=== PATIENT | female | born 2000 | race Caucasian/White ===

== ENCOUNTER 2021-11-16 16:11 | Emergency (ER) | payer OTHER ==
[2021-11-16] MEDS ORDERED: Ondansetron PF 4 MG/2 ML Vial ONE (16:34)
[2021-11-16] MEDS ORDERED: Lactated Ringer's 1,000 ML ONE (16:34)
[2021-11-16 16:39] LABS: #Basophils 0.1 thou/uL (0.0-0.2); #Eosinphils 0.1 thou/uL (0.0-0.7); #Lymphocytes 1.6 thou/uL (1.20-3.40); #Monocytes 0.5 thou/uL (0.11-0.59); #Neutrophils 5.6 thou/uL (1.40-6.50); %Basophils 1.1 % (0.0-1.0); %Eosinophils 0.7 % (0.0-10.0); %Lymphocytes 20.6 % (21.0-51.0); %Monocytes 5.9 % (0.0-10.0); %Neutrophils 71.7 % (42.0-75.0); Hemoglobin 12.6 g/dL (12.0-16.0); Mean Corpuscular HGB CONC 34.1 g/dL (32.0-36.0); Mean Corpuscular Hemoglobin 32.3 pg (27.0-31.0); Mean Corpuscular Volume 94.7 fL (78.0-98.0); Platelet Count 269 thou/uL (130-400); RBC Distribution Width 10.9 % (11.5-14.5); Red Blood Cell (RBC) Count 3.89 mill/uL (4.20-5.40); White Blood Cell (WBC) Count 7.8 thou/uL (4.8-10.8)
[2021-11-16 16:52] LABS: ALT (SGPT) 35 U/L (8-55); AST (SGOT) 38 U/L (5-34); Albumin 4.3 g/dL (3.5-5.0); Alkaline Phosphatase 64 U/L (40-110); Anion Gap 17 mmol/L (10-20); BUN (Urea Nitrogen) 8 mg/dL (7.0-18.7); Bilirubin, Total 0.4 mg/dL (0.2-1.2); Calc. Creatinine Clearance 0 mL/min (70-130); Calcium 9.5 mg/dL (7.8-10.44); Carbon Dioxide 17 mmol/L (22-29); Chloride 106 mmol/L (98-107); Estimated GFR 127; Glucose 88 mg/dL (70-105); Potassium 3.8 mmol/L (3.5-5.1); Protein, Total 7.3 g/dL (6.0-8.3); Sodium 136 mmol/L (136-145)
[2021-11-16 16:54] LABS: Prothrombin Time 12.9 sec (12.0-14.7)
[2021-11-16 16:55] LABS: PTT 28.1 sec (22.9-36.1)
[2021-11-16 16:57] LABS: D-Dimer Test 0.28 *mcg/mL (0.27-0.43)
[2021-11-16] MEDS ORDERED: Acetaminophen 500 MG TAB ONE (17:35)
[2021-11-16] MEDS ORDERED: Mag-Al Plus 1200 MG/1200 MG/120 MG/30 ML UDCUP ONE (19:08)
[2021-11-16] MEDS ORDERED: Lidocaine Viscous Sol 2% 15 ml UD Cup ONE (19:08)
[2021-11-16 19:48] LABS: Troponin I Less than 0.010 ng/mL (< 0.028)
== END 2021-11-16 20:20 | disposition home or self-care (01) ==
LOC: MADERS 16:11
DX: O99.891 Other specified diseases and conditions complicating pregnancy (principal); R07.81 Pleurodynia; O21.9 Vomiting of pregnancy, unspecified; Z3A.13 13 weeks gestation of pregnancy
CPT/HCPCS: 36415; 71045; 80053; 83690; 84484; 85025; 85379; 85610; 85730; 93005; 94760; 96361; 96374; J2405; J7120

== ENCOUNTER 2022-03-04 15:56 | Emergency (ER) | payer OTHER | END 2022-03-04 16:45 | disposition home or self-care (01) | LOC: MADERS 15:56 | DX: O98.513 Other viral diseases complicating pregnancy, third trimester (principal); J11.1 Influenza due to unidentified influenza virus with other respiratory manifestations; O13.3 Gestational [pregnancy-induced] hypertension without significant proteinuria, third trimester; Z3A.28 28 weeks gestation of pregnancy | CPT/HCPCS: 99283 ==

== ENCOUNTER 2022-04-23 12:31 | Outpatient (CLI) | payer OTHER ==
[2022-04-24 19:52] LABS: Group B Streptococcus by PCR Not Detected (NotDetected)
== END 2022-04-23 12:32 | disposition home or self-care (01) ==
LOC: MADLABBHPM 12:31
PROVIDERS: ATTEND Family Medicine
DX: O99.283 Endocrine, nutritional and metabolic diseases complicating pregnancy, third trimester (principal)
CPT/HCPCS: 87653